=== PATIENT | male | born 1985 | race Caucasian/White ===

== ENCOUNTER 2025-01-26 14:59 | Inpatient (IN) | payer OTHER ==
[2025-01-26 15:32] VITALS: BMI 22.5
[2025-01-26] MEDS ORDERED: chlordiazePOXIDE HCL 25 MG CAPSULE PO PRN (15:58)
[2025-01-26] MEDS ORDERED: ACETAMINOPHEN 325 MG TABLET (FP) PO PRN (16:07)
[2025-01-26] MEDS ORDERED: NICOTINE POLACRILEX 2 MG LOZENGE BC PRN (16:07)
[2025-01-26] MEDS ORDERED: NICOTINE POLACRILEX 2 MG GUM BUC PRN (16:07)
[2025-01-26] MEDS ORDERED: METHOCARBAMOL 500 MG TABLET PO PRN (16:07)
[2025-01-26] MEDS ORDERED: BENZOCAINE/MENTHOL (CHLORASEPTIC ) LOZENGE MM PRN (16:07)
[2025-01-26] MEDS ORDERED: NALOXONE (NARCAN) HCL 4 MG/0.1 ML SPRAY NS PRN (16:07)
[2025-01-26] MEDS ORDERED: IBUPROFEN 400 MG TABLET (FP) PO PRN (16:07)
[2025-01-26] MEDS ORDERED: POLYETHYLENE GLYCOL (HEALTHYLAX) 3350 17 GM PACKET PO PRN (16:07)
[2025-01-26] MEDS ORDERED: MAGNESIUM HYDROX 2400MG/30ML ORAL SUSPENSION 30 ML CUP PO PRN (16:07)
[2025-01-26] MEDS ORDERED: LOPERAMIDE HCL 2 MG CAPSULE PO PRN (16:07)
[2025-01-26] MEDS ORDERED: BENZONATATE 200 MG CAPSULE PO PRN (16:07)
[2025-01-26] MEDS ORDERED: guaiFENesin 600 MG TABLET.ER (FP) PO PRN (16:07)
[2025-01-26] MEDS ORDERED: chlordiazePOXIDE HCL 25 MG CAPSULE ONE (17:04)
[2025-01-26] MEDS ORDERED: levETIRAcetam 500 MG TABLET (FP) PO ONE (17:04)
[2025-01-26] MEDS: levETIRAcetam 500 MG TABLET (FP) PO SCH (17:05)
[2025-01-26] MEDS: chlordiazePOXIDE HCL 25 MG CAPSULE PO SCH (17:06)
[2025-01-26] MEDS ORDERED: ONDANSETRON *ODT* 4 MG TABLET ONE (17:17)
[2025-01-26] MEDS: ONDANSETRON *ODT* 4 MG TABLET SL PRN (17:19)
[2025-01-26] MEDS: DICYCLOMINE HCL 10 MG CAPSULE PO PRN (19:29)
[2025-01-26] MEDS: THIAMINE 100 MG TABLET PO SCH (22:35)
[2025-01-26] MEDS: MELATONIN 5 MG TABLETS PO SCH (22:37)
[2025-01-27] MEDS: PRENATAL VITAMINS W/ FOLIC ACID TABLET (FP) PO SCH (10:59)
[2025-01-27 11:30] LABS: MCH 29.5 pg (25.7-33.7); MCHC 34.3 g/dl (32.0-35.9); MEAN CELL VOLUME 86.2 fl (80-96); PLATELET COUNT 161 10^3/uL (134-434); RBC 4.75 M/mm3 (4.00-5.60); RDW 15.1 % (11.9-15.9); WHITE BLOOD COUNT 4.1 K/mm3 (4.0-10.0)
[2025-01-27 12:32] LABS: CHLORIDE 104 mmol/L (98-107); POTASSIUM 3.7 mmol/L (3.5-5.1); SODIUM 140 mmol/L (136-145)
[2025-01-27 12:46] LABS: SGOT/AST 24 U/L (15-37); SGPT/ALT 24 U/L (13-61)
[2025-01-27 12:47] LABS: BILIRUBIN,TOTAL 1.5 mg/dL (0.2-1)
[2025-01-27 12:49] LABS: ALBUMIN 3.7 g/dl (3.4-5.0)
[2025-01-27 12:50] LABS: BLOOD UREA NITROGEN 8.6 mg/dL (7-18); GLUCOSE,RANDOM 114 mg/dL (74-106)
[2025-01-27 12:52] LABS: CREATININE 1.1 mg/dL (0.55-1.3)
[2025-01-27 12:53] LABS: ANION GAP 9 mmol/L (4-13); CALCIUM 9.1 mg/dL (8.5-10.1); CO2 27 mmol/L (21-32)
[2025-01-27 13:10] LABS: ALK PHOS 98 U/L (45-117)
[2025-01-28] MEDS: chlordiazePOXIDE HCL 25 MG CAPSULE PO SCH (05:34)
[2025-01-28] MEDS: NALTREXONE HCL 50 MG TABLET PO ONE (13:09)
[2025-01-28] MEDS: MAG HYDROX/AL HYDROX/SIMETH 30 ML UNIT-DOSE CUP PO PRN (17:23)
[2025-01-28] MEDS: SUVOREXANT 10 MG TABLET PO PRN (22:21)
[2025-01-29] MEDS ORDERED: chlordiazePOXIDE HCL 10 MG CAPSULE PO PRN
[2025-01-29] MEDS: chlordiazePOXIDE HCL 10 MG CAPSULE PO SCH (05:41)
[2025-01-29] MEDS: NALTREXONE HCL 50 MG TABLET PO SCH (10:21)
[2025-01-29] MEDS: IBUPROFEN 600 MG TABLET (FP) PO PRN (10:26)
[2025-01-29] MEDS ORDERED: LORazepam 1 MG TABLET PO PRN ×2 (10:40→11:54)
[2025-01-29] MEDS: LORazepam 1 MG TABLET PO SCH (17:49)
[2025-01-29] MEDS: BISMUTH SUBSALICYLATE 524 MG/30 ML PO PRN (22:44)
[2025-01-30] MEDS ORDERED: chlordiazePOXIDE HCL 10 MG CAPSULE PO SCH (05:00)
[2025-01-30] MEDS: LORazepam 0.5 MG TABLET PO SCH (05:52)
[2025-01-30] MEDS: CYPROHEPTADINE HCL 4 MG TABLET PO SCH (17:29)
[2025-01-31] MEDS ORDERED: chlordiazePOXIDE HCL 10 MG CAPSULE PO ONE (05:00)
[2025-01-31] MEDS: LORazepam 0.5 MG TABLET PO ONE (05:48)
[2025-01-31] MEDS: hydrOXYzine PAMOATE 25 MG CAPSULE (FP) PO PRN (22:29)
[2025-02-01] MEDS ORDERED: LORazepam 0.5 MG TABLET PO PRN
[2025-02-01] MEDS ORDERED: LORazepam 0.5 MG TABLET PO SCH (05:00)
[2025-02-01 21:11] VITALS: RESP 16
[2025-02-02] MEDS ORDERED: LORazepam 0.5 MG TABLET PO ONE (05:00)
[2025-02-02 08:42] VITALS: BP 120/70; PULSE 86; TEMP 97.8
== END 2025-02-02 10:40 | disposition other institution (70) | DRG 775 ==
LOC: EDBD → YASAS 14:59 → Y6N 18:10
PROVIDERS: ADMIT Allergy & Immunology; ATTEND Allergy & Immunology
PROC: HZ2ZZZZ Detoxification Services for Substance Abuse Treatment (ICD-10-PCS; principal; 2025-01-26)
DX: F10.230 Alcohol dependence with withdrawal, uncomplicated (principal); F10.280 Alcohol dependence with alcohol-induced anxiety disorder; F10.282 Alcohol dependence with alcohol-induced sleep disorder; F10.24 Alcohol dependence with alcohol-induced mood disorder; F41.9 Anxiety disorder, unspecified; F32.A Depression, unspecified; Z21 Asymptomatic human immunodeficiency virus [HIV] infection status
CPT/HCPCS: 36415; 80053; 80305; 80307; 85027; 86593; 86780; 86803; 93005; 93010; Q0162